=== PATIENT | male | born 1950 | race Caucasian/White ===

== ENCOUNTER → 2017-10-13 08:05 | Outpatient (CLI) | payer MEDICARE, OTHER, SELFPAY ==
[2017-10-13 10:02] LABS: Hemoglobin A1c 6.2 % (4.2-6.3)
[2017-10-13 10:14] LABS: Anion Gap 8 (5-15); BUN 17 mg/dL (7-18); BUN/Creat Ratio 15.9 RATIO (10-20); Calcium,Total 8.8 mg/dL (8.5-10.1); Chloride 108 mmol/L (98-107); Cholesterol 69 mg/dL (200); Creatinine, Serum 1.07 mg/dL (0.70-1.30); EST Glomerular Filtration Rate 74 mL/min (>60); Est Glom Filt Rate - Afr Amer 89 mL/min (>60); Glucose 128 mg/dL (74-106); High Density Lipoprotein 39 mg/dL; Sodium Level 143 mmol/L (136-145); Triglycerides 74 mg/dL; Very Low Density Lipoprotein 15 mg/dL (5-40)
== END ==
PROVIDERS: Family Provider Family Medicine; PCP Family Medicine; Visit Provider Family Medicine
DX: E11.9 Type 2 diabetes mellitus without complications (principal); E78.5 Hyperlipidemia, unspecified
CPT/HCPCS: 36415; 80048; 80061; 83036

== ENCOUNTER 2017-11-16 07:01 | Day surgery (SDC) | payer MEDICARE, OTHER, SELFPAY ==
[2017-11-16] VITALS (7 sets, daily range): BP systolic 75–134; BP diastolic 57–81; PULSE 68–86; RESP 16–19; TEMP 36.3–36.5; O2SAT 93–96; BMI 27.8
[2017-11-16 08:21] LABS: Bedside Glucose 148 mg/dL (70-110)
--- NOTE | 2017-11-16 08:53 | COLBX_PTH ---
PATIENT: KELLE GARCIA LOC: EN U#:[id number] AGE/SX: 67/M ROOM: RE11/16/[address]: Dr. Alfonzo Chau MD : 1950 BED: DIS: 11/16/2017 SPEC #: [id number] RECD: 11/16/17 11:55 STATUS: LALIT KATHY #: [id number] ESTRELLITA: 11/16/17 08:[address]: Alfonzo Chau DEPT: SURGICAL PATHOLOGY RECD BY: Jayson Cardoso ENTERED: 11/16/17 12:53 SP TYPE: COLON BX OTHR DR: Dr. Gilberto Keyes MD Tissues: Descending colon Procedures: Surgery Specimen Level IV HEADER OPERATION: Colonoscopy PRE-OP DIAGNOSIS: Screening TISSUE SUBMITTED: Descending colon polyps (2) MICROSCOPIC DIAGNOSIS Descending colon polyps, biopsy: Fragments of tubular adenoma. AM:tera 11/17/17 COMMENT Case has been reviewed in consultation with Dr. Obregon who concurs with the above diagnosis. IDC:SJ MICROSCOPIC DESCRIPTION Slides are reviewed. GROSS DESCRIPTION Received in fixative is one container labeled with the patient's name and designated descending colon polyps. The specimen consists of two romero-pink polyps measuring 1 x 0.7 x 0.5 cm and 1.5 x 0.7 x 0.5 cm. The base of one polyp is inked black and other polyp is inked blue. Both polyps are bisected and submitted entirely in one cassette. / CEDRIC:tera 11/16/17 TC:5 CPT: 17285
--- NOTE | 2017-11-16 09:00 | PCM.OPRPT ---
Problem List (1) Encounter for screening for malignant neoplasm of colon Status: Acute Report of Operation Date of Procedure: 11/16/17 Pre-Operative Diagnosis: z12.11 screening colonoscopy Post-Operative Diagnosis: Same with polyps of the descending colon Surgery/Procedure Performed:: 60883 colonoscopy with snare polypectomy ?2 Description of Surgical Findings:: 2 polyps within the descending colon removed with snare cautery technique Type of Anesthesia:: MAC Anesthesiologist: Tavares Wells Specimen's removed: 2 polyps in the descending colon Description of Procedure: Patient was brought into the operating room. Placed in the supine position. Under excellent MAC anesthetic colonoscope was inserted into the rectum and directed through the sigmoid colon, descending colon, transverse colon, ascending colon, to the cecum. Operative findings: 1. Cecum: Normal appearance no mass lesions normal ileocecal valve. 2. Ascending colon: Normal appearance no mass lesions. 3. Transverse colon: Normal appearance no mass lesions. 4. Descending colon: Normal appearance no mass lesions. There were 2 polyps of the descending colon both with long stalks in the distal aspect of the sigmoid colon. These were removed with snare cautery technique and brought back through the anus with a snare polyp bag. I went back up and inspected the bases the distal polypectomy was bleeding and a resolution 360 clip was placed. Good hemostasis was achieved with this. The proximal polypectomy site looked good and was not bleeding. 5. Sigmoid colon normal appearance no mass lesions scattered diverticuli identified. 6. Rectum: Normal appearance no mass lesions few internal hemorrhoids were noted on retroflexion. Scope was withdrawn digital rectal exam was performed showing a small prostate and a few external hemorrhoids as well. Patient will need another colonoscopy in 3 years. I am going to obtain an abdominal x-ray to check on the location of the clip. - Admit VTE Documentation VTE Present on Admission: No VTE Mechan Device Prophylaxis: None VTE Pharm Prophylaxis ordered?: No Reason prophylaxis not ordered:: Treatment Not Indicated
--- NOTE | 2017-11-16 09:08 | RAD_ITS ---
STUDY: X-RAY - ABDOMEN/PELVIS REASON FOR EXAM: Male, 67 years old. Post colonoscopy. Clip placement for polyp marker. TECHNIQUE: Two AP supine views of the abdomen and pelvis. COMPARISON: None. FINDINGS: Normal visualized lung bases. There is an unremarkable bowel gas pattern. A metallic clip marker is seen overlying the pedicle of the L5 vertebrae on the left side most likely within the sigmoid colon. Normal soft tissue structures. Normal visualized osseous structures. RAD/Abdomen Single View (Portable) IMPRESSION: Metallic clip seen as described. Electronically Signed: Terry Gonzalez MD at 9:34 EDT Tel [phone], Service support ,
--- NOTE | 2017-11-25 07:56 | PCM.HP.STD ---
Problem List (1) Encounter for screening for malignant neoplasm of colon Status: Acute History of Present Illness Date of Admission: 11/16/17 The patient is a 67 year old M who presents for screening colonoscopy. Past Medical History Past Medical History (Chronic Problems): Chronic Problems (Last Updated 11/23/17 @ 13:01 by Dali Zamora) History of tobacco use (Chronic) Anxiety and depression (Chronic) Allergies No Known Allergies Allergy (Verified 11/23/17 12:55) Home Medications: Ambulatory Orders Medication Instructions Recorded Citalopram [Celexa] 40 mg PO DAILY 03/28/15 Aspirin 325 mg PO DAILY@0800 11/10/17 Atorvastatin Calcium [Lipitor] 80 mg PO QHS 11/10/17 Metformin HCl [Glucophage] 1,000 mg PO BID 11/10/17 Surgical History: - - R hand carpal tunnel surgery. Psychiatric History: Anxiety, Depression Smoking Status: Former smoker - *Family History Maternal History Items: Diabetes Paternal History Items: Stroke VTE Information - Inpt Only VTE Present on Admission: No VTE Mechan Device Prophylaxis: None VTE Pharm Prophylaxis ordered?: No Reason prophylaxis not ordered:: Treatment Not Indicated - Physical Exam Lungs: Clear to auscultation Cardiovascular: Regular rate, Regular Rhythm, No murmurs Abdomen: Bowel Sounds Present, Soft, Non Tender, Non-Distended Vital Signs Temp Pulse Resp BP Pulse Ox 97.4 F L 68 18 118/73 96 11/16/17 09:25 11/16/17 09:25 11/16/17 09:25 11/16/17 09:25 11/16/17 09:25 Oxygen Delivery Method Room Air Weight: 199 lb 4.766 oz Body Mass Index (BMI) 27.8 Finger Stick Blood Glucose 444 Assessment/Plan I plan is to perform a screening colonoscopy on the patient.
== END 2017-11-16 09:51 | disposition home or self-care (01) ==
LOC: EN 07:03 → AC 07:04
PROVIDERS: Family Provider Family Medicine; PCP Family Medicine; Visit Provider Surgery
PROC: 0DJD8ZZ Inspection of Lower Intestinal Tract, Via Natural or Artificial Opening Endoscopic (ICD-10-PCS; CPT 45378; principal; 2017-11-16 08:25)
DX: Z12.11 Encounter for screening for malignant neoplasm of colon (principal); D12.4 Benign neoplasm of descending colon; K64.4 Residual hemorrhoidal skin tags; K64.8 Other hemorrhoids; E11.9 Type 2 diabetes mellitus without complications; F32.9 Major depressive disorder, single episode, unspecified; F41.9 Anxiety disorder, unspecified; Z79.84 Long term (current) use of oral hypoglycemic drugs; Z79.82 Long term (current) use of aspirin; Z79.899 Other long term (current) drug therapy; Z86.73 Personal history of transient ischemic attack (TIA), and cerebral infarction without residual deficits; Z87.891 Personal history of nicotine dependence
CPT/HCPCS: 45385; 74018; 82962; 88305; J7120; J1610

== ENCOUNTER → 2018-04-13 09:21 | Outpatient (CLI) | payer MEDICARE, OTHER, SELFPAY ==
[2018-04-13 09:56] LABS: Glucose 131 mg/dL (74-106)
[2018-04-13 10:06] LABS: Hemoglobin A1c 6.6 % (4.2-6.3)
== END ==
PROVIDERS: Family Provider Family Medicine; PCP Family Medicine; Visit Provider Family Medicine
DX: E11.9 Type 2 diabetes mellitus without complications (principal); Z12.5 Encounter for screening for malignant neoplasm of prostate
CPT/HCPCS: 36415; 82947; 83036

== ENCOUNTER → 2018-10-11 09:15 | Outpatient (CLI) | payer MEDICARE, OTHER, SELFPAY ==
[2017-11-23 12:55] VITALS: BMI 27.7
[2018-10-11 10:13] LABS: Hemoglobin A1c 7.1 % (4.2-6.3)
[2018-10-11 10:22] LABS: Anion Gap 12 (5-15); BUN 21 mg/dL (7-18); BUN/Creat Ratio 19.1 RATIO (10-20); Chloride 107 mmol/L (98-107); Cholesterol 70 mg/dL (200); EST Glomerular Filtration Rate 71 mL/min (>60); Est Glom Filt Rate - Afr Amer 86 mL/min (>60); Glucose 153 mg/dL (74-106); High Density Lipoprotein 33 mg/dL; PSA,Total - Annual Screen 0.22 ng/mL (0.00-4.00); Potassium 4.3 mmol/L (3.5-5.1); Sodium Level 143 mmol/L (136-145); Triglycerides 117 mg/dL; Very Low Density Lipoprotein 23 mg/dL (5-40)
== END ==
PROVIDERS: Family Provider Family Medicine; PCP Family Medicine; Referring Provider Family Medicine; Visit Provider Family Medicine
DX: E11.9 Type 2 diabetes mellitus without complications (principal); E78.5 Hyperlipidemia, unspecified; Z12.5 Encounter for screening for malignant neoplasm of prostate
CPT/HCPCS: 36415; 80048; 80061; 83036; 84153; G0103

== ENCOUNTER → 2019-07-11 09:42 | Outpatient (CLI) | payer MEDICARE, OTHER, SELFPAY ==
[2017-11-23 12:55] VITALS: BMI 27.7
[2019-07-11 12:33] LABS: Hemoglobin A1c 7.5 % (4.2-6.3)
[2019-07-11 12:37] LABS: Anion Gap 11 (5-15); BUN 20 mg/dL (7-18); BUN/Creat Ratio 17.1 RATIO (10-20); Chloride 108 mmol/L (98-107); Cholesterol 69 mg/dL (200); Creatinine, Serum 1.17 mg/dL (0.70-1.30); EST Glomerular Filtration Rate 66 mL/min (>60); Est Glom Filt Rate - Afr Amer 80 mL/min (>60); Glucose 174 mg/dL (74-106); High Density Lipoprotein 32 mg/dL; Sodium Level 141 mmol/L (136-145); Triglycerides 121 mg/dL; Very Low Density Lipoprotein 24 mg/dL (5-40)
== END ==
PROVIDERS: Family Provider Family Medicine; PCP Family Medicine; Referring Provider Family Medicine; Visit Provider Family Medicine
DX: E11.9 Type 2 diabetes mellitus without complications (principal); E78.5 Hyperlipidemia, unspecified
CPT/HCPCS: 36415; 80048; 80061; 83036

== ENCOUNTER → 2019-10-10 08:59 | Outpatient (CLI) | payer MEDICARE, OTHER, SELFPAY ==
[2019-10-10 10:57] LABS: Cholesterol 85 mg/dL (200); High Density Lipoprotein 28 mg/dL; Triglycerides 219 mg/dL; Very Low Density Lipoprotein 44 mg/dL (5-40)
[2019-10-10 11:05] LABS: Hemoglobin A1c 7.4 % (4.2-6.3)
== END ==
PROVIDERS: PCP Family Medicine; Referring Provider Family Medicine; Visit Provider Family Medicine
DX: E11.9 Type 2 diabetes mellitus without complications (principal)
CPT/HCPCS: 36415; 80061; 83036

== ENCOUNTER → 2019-10-17 10:03 | Outpatient (CLI) | payer MEDICARE, OTHER, SELFPAY ==
[2017-11-23 12:55] VITALS: BMI 27.7
[2019-10-17 12:37] LABS: PSA,Total - Annual Screen 0.19 ng/mL (0.00-4.00)
== END ==
PROVIDERS: PCP Family Medicine; Referring Provider Family Medicine; Visit Provider Family Medicine
DX: Z12.5 Encounter for screening for malignant neoplasm of prostate (principal)
CPT/HCPCS: 36415; 84153; G0103

== ENCOUNTER → 2020-04-09 10:21 | Outpatient (CLI) | payer MEDICARE, OTHER, SELFPAY ==
[2017-11-23 12:55] VITALS: BMI 27.7
[2020-04-09 12:38] LABS: ALB/GLOB Ratio 0.9 RATIO (0.9-2.4); AST(SGOT) 25 U/L (15-37); Alanine Aminotransfer ALT/SGPT 42 U/L (16-61); Albumin, Serum 3.5 g/dL (3.2-5.0); Alkaline Phosphatase 70 U/L (45-117); Anion Gap 4 (5-15); BUN 17 mg/dL (7-18); BUN/Creat Ratio 14.3 RATIO (10-20); Calcium,Total 8.9 mg/dL (8.5-10.1); Chloride 110 mmol/L (98-107); Cholesterol 104 mg/dL (200); Creatinine, Serum 1.19 mg/dL (0.70-1.30); EST Glomerular Filtration Rate 65 mL/min (>60); Est Glom Filt Rate - Afr Amer 78 mL/min (>60); Globulin 3.9 g/dL (2.2-4.2); Glucose 160 mg/dL (74-106); High Density Lipoprotein 30 mg/dL; Potassium 4.6 mmol/L (3.5-5.1); Protein, Total 7.4 g/dL (6.4-8.2); Sodium Level 140 mmol/L (136-145); Triglycerides 231 mg/dL; Very Low Density Lipoprotein 46 mg/dL (5-40)
[2020-04-09 13:28] LABS: Hemoglobin A1c 7.4 % (3.8-5.6)
== END ==
PROVIDERS: PCP Family Medicine; Referring Provider Family Medicine; Visit Provider Family Medicine
DX: E11.9 Type 2 diabetes mellitus without complications (principal); E78.5 Hyperlipidemia, unspecified; R03.0 Elevated blood-pressure reading, without diagnosis of hypertension
CPT/HCPCS: 36415; 80053; 80061; 83036

== ENCOUNTER → 2020-10-11 10:14 | Outpatient (CLI) | payer MEDICARE, OTHER, SELFPAY ==
[2017-11-23 12:55] VITALS: BMI 27.7
[2020-10-11 12:06] LABS: Hemoglobin A1c 6.7 % (3.8-5.6)
[2020-10-11 12:13] LABS: AST(SGOT) 37 U/L (15-37); Alanine Aminotransfer ALT/SGPT 64 U/L (16-61); Albumin, Serum 3.8 g/dL (3.2-5.0); Alkaline Phosphatase 65 U/L (45-117); Anion Gap 5 (5-15); BUN 21 mg/dL (7-18); BUN/Creat Ratio 14.4 RATIO (10-20); Calcium,Total 9.1 mg/dL (8.5-10.1); Chloride 107 mmol/L (98-107); Cholesterol 99 mg/dL (200); Creatinine, Serum 1.46 mg/dL (0.70-1.30); EST Glomerular Filtration Rate 51 mL/min (>60); Est Glom Filt Rate - Afr Amer 62 mL/min (>60); Globulin 3.9 g/dL (2.2-4.2); Glucose 154 mg/dL (74-106); High Density Lipoprotein 32 mg/dL; Potassium 4.4 mmol/L (3.5-5.1); Protein, Total 7.7 g/dL (6.4-8.2); Sodium Level 139 mmol/L (136-145); Triglycerides 241 mg/dL; Very Low Density Lipoprotein 48 mg/dL (5-40)
[2020-10-11 12:16] LABS: Microalbumin:Creatinine Ratio 29.7 mg/g CRE (<30 mg/g CRE)
== END ==
PROVIDERS: PCP Family Medicine; Referring Provider Family Medicine; Visit Provider Family Medicine
DX: E11.9 Type 2 diabetes mellitus without complications (principal)
CPT/HCPCS: 80053; 80061; 82043; 82570; 83036

== ENCOUNTER → 2020-10-19 08:58 | Outpatient (CLI) | payer MEDICARE, OTHER, SELFPAY ==
[2017-11-23 12:55] VITALS: BMI 27.7
[2020-10-19 10:53] LABS: Anion Gap 6 (5-15); BUN 16 mg/dL (7-18); BUN/Creat Ratio 12.3 RATIO (10-20); Calcium,Total 9.3 mg/dL (8.5-10.1); Chloride 106 mmol/L (98-107); EST Glomerular Filtration Rate 58 mL/min (>60); Est Glom Filt Rate - Afr Amer 70 mL/min (>60); Glucose 154 mg/dL (74-106); PSA,Total - Annual Screen 0.23 ng/mL (0.00-4.00); Potassium 4.5 mmol/L (3.5-5.1); Sodium Level 141 mmol/L (136-145)
== END ==
PROVIDERS: PCP Family Medicine; Referring Provider Family Medicine; Visit Provider Family Medicine
DX: Z12.5 Encounter for screening for malignant neoplasm of prostate (principal); R79.89 Other specified abnormal findings of blood chemistry
CPT/HCPCS: 36415; 80048; 84153; G0103

== ENCOUNTER → 2020-10-26 12:12 | Outpatient (CLI) | payer MEDICARE, OTHER, SELFPAY ==
--- NOTE | 2020-10-26 12:13 | US_ITS ---
STUDY: RENAL ULTRASOUND - COMPLETE REASON FOR EXAM: Male, 70 years old. DECREASED RENAL FUNCTION TECHNIQUE: Ultrasound evaluation of the kidneys was performed with real-time and static wiley-scale imaging. COMPARISON: None. FINDINGS: RIGHT KIDNEY: Normal location of the right kidney, which is normal in size. The right kidney measures 10.7 cm x 5 cm x 5.8 cm. There is a normal cortex of the right kidney. The renal cortex measures 1.7 cm. 51.1 cm x 0.6 cm x 0.8 cm cyst in the lower pole of the right kidney. There are no right renal calculi. There is no right hydronephrosis. DISTAL RIGHT URETER: There is non-visualization of the distal right ureter. There is no demonstrated right ureterovesical junction calculus. There is a visualized right ureteral jet. LEFT KIDNEY: Normal location of the left kidney, which is normal in size. The left kidney measures 10.6 cm x 4.3 cm x 5.9 cm. There is a normal cortex of the left kidney. The renal cortex measures 1.7 cm. There is no left renal mass or cyst. There are no left renal calculi. There is no left hydronephrosis. DISTAL LEFT URETER: There is non-visualization of the distal left ureter. There is no demonstrated left ureterovesical junction calculus. There is a visualized left ureteral jet. BLADDER: The distended urinary bladder has a volume of 21.6 ml. There is a 1.9 cm x 1.8 cm x 1.3 cm echogenic density within the right base of the bladder. A polypoid lesion should be ruled out. US/Kidney and Bladder IMPRESSION: 1.9 cm x 1.8 cm x 1.3 cm polypoid soft tissue density seen at the base of the bladder on the right side. Electronically Signed: Terry Gonzalez MD at 14:45 EST , Service support ,
== END ==
PROVIDERS: PCP Family Medicine; Referring Provider Family Medicine; Visit Provider Family Medicine
DX: N28.9 Disorder of kidney and ureter, unspecified (principal)
CPT/HCPCS: 76770

== ENCOUNTER → 2020-11-07 14:44 | Outpatient (CLI) | payer MEDICARE, OTHER, SELFPAY ==
--- NOTE | 2020-11-07 14:46 | CT_ITS ---
STUDY: CT ABDOMEN AND PELVIS WITH CONTRAST REASON FOR EXAM: Male, 70 years old. Mass in bladder RADIATION DOSAGE (If Supplied By Facility): CTDIvol = ( 17.41 ) mGy, DLP = ( 2208.47 ) mGycm TECHNIQUE: Transaxial images were obtained from the dome of the diaphragm to the symphysis pubis without oral contrast. IV 100mL Isovue-300 was administered. Sagittal and coronal images were reconstructed. Individualized dose optimization techniques were used for this CT. COMPARISON: None. FINDINGS: The visualized lung bases are unremarkable. Coronary artery calcification. There is decreased attenuation of the liver consistent with steatosis. Normal gallbladder and extrahepatic biliary system. Normal spleen. Normal pancreas. Normal bilateral adrenal glands. Normal right kidney. Punctate calculus in the anterior mid pole calyx of the left kidney. Normal visualized stomach. Normal small intestine. Normal colon. The appendix is visualized and appears normal. There is scattered atherosclerotic calcification of the abdominal aorta, without a demonstrated aneurysm. Normal inferior vena cava. Normal retroperitoneum. Irregular bladder wall thickening at the base of the bladder more prominent on the right side. Punctate calcifications are seen within the polypoid lesion. The polypoid lesion measures 1.5 cm x 1 cm in greatest dimension. There are prostatic calcifications. Small bilateral inguinal hernias containing fat. Spondylosis and disc space narrowing at the L4-L5 and L5-S1 levels. CT/Abdomen/Pelvis WITH Contrast IMPRESSION: Irregular bladder wall thickening at the base the bladder worse on the right side where there is evidence of a 1.5 cm x 1 cm polypoid lesion with a punctate calcifications within. A neoplastic process should be ruled out. Diffuse fatty infiltration of the liver. Electronically Signed: Terry Gonzalez MD at 8:46 EST , Service support ,
== END ==
PROVIDERS: PCP Family Medicine; Referring Provider Family Medicine; Visit Provider Family Medicine
DX: N32.89 Other specified disorders of bladder (principal)
CPT/HCPCS: 74177; Q9967

== ENCOUNTER 2020-11-23 06:22 | Day surgery (SDC) | payer MEDICARE, OTHER, SELFPAY ==
[2017-11-23 12:55] VITALS: BMI 27.7
[2020-11-23] VITALS (11 sets, daily range): BP systolic 70–144; BP diastolic 54–82; PULSE 57–87; RESP 14–16; TEMP 36.4–37.2; O2SAT 93–98; BMI 29.9
[2020-11-23] MEDS: Lactated Ringers 1,000 ML 100 ML IV ×2 (06:58→08:01)
--- NOTE | 2020-11-23 07:15 | HP.PCM_ITS ---
History of Present Illness Date of Admission: 11/23/20 The patient is a 70 year old M here for surveillance colonoscopy. The patient had 2 large polyps found 3 years ago and was recommended to have a repeat colonoscopy in 3 years. Patient has not experienced any abdominal pain or blood in the stool currently. Past Medical/Surgical History - Planned Operation Planned Operative Procedure/s: cscope open access Date of Operative Procedure: 11/23/20 Permit Signed: No S.O.S: No Is This Patient Having a Total Joint: No - Previous Hospitalizations/Surgeries HX Hospitalizations: No HX of Surgeries: CARPAL TUNNEL. STENTS PLACED IN CAROTID ARTERY -2014. cscope 2018 Any Problems With Anesthesia: No You/Your Family Experience Fever (Hyperthermia) With Anes: No Cholinesterase deficiency: No - Cardiovascular Hx Chest Pain within Last 2 months: No Hx of Irregular Heartbeat and/or Afib: No Hx Heart Attack: No Hx Congestive Heart Failure: No Hx Rheumatic Fever: No Hx Hypertension: No Hx Internal Defibrillator: No Hx Pacemaker: No Hx Cardiac Catheterization: No Hx Cardiac Surgery/Stents/Etc.: No Hx Stress Test: No HX Edema: No Hx Pain in Legs when Walking/Leg Cramps: No - Respiratory Chronic Cough: No HX of Shortness of Breath: Yes - slightly sob with 2 flights of stairs Hoarseness: No Hx Chronic Obstructive Pulmonary Disease (COPD): No Hx Asthma: No Hx Emphysema: No Hx Sleep Apnea: No CPAP: No BIPAP: No Hx Oxygen Use at Home: No Hx Respiratory Tract Infection/Cold (presently): No Do You Snore Loudly (louder than talking or can be heard): Yes Do You Often Feel Tired/ Fatigued/ Sleepy Dring Daytime?: Yes Has Anyone Observed You Stop Breathing During Sleep?: No Result (for STOP score): Positive Hx Smoking: Yes - quit 15 yrs ago Smoking Status: Former smoker - Gastrointestinal Hx Gastroesophageal Reflux: Yes Controlled With Meds: Yes Hx Gastrointestinal Disorders: No Hx Gastrointestinal Bleed: No Hx Ulcer: No Hx Hiatal Hernia: No Difficulty Chewing/Swallowing: No Recent Onset of Swallowing Problems: No Special diet followed at home: Yes - ada Hx Unplanned Weight Loss of 20#: No HX Unplanned Weight Gain of 20#: No - Neurological Hx Seizures: No HX Syncope/Blackout Spells/Unconsciousness: No Hx CVA/Stroke: Yes - 2014 facial numbness/left side Hx Transient Ischemic Attacks (TIA): No Hx Multiple Sclerosis: No Hx Parkinson's Disease: No Hx Head/Neck Injury: No Hx Headaches: No Hx Back Injury/Pain: No Recent Onset of Speech Difficulty: No Restless Legs: No Does patient have nerve stimulator: No Patient instructed to have device shut off: No Rep notified?: No - Blood Disorder Hx Leukemia: No Bleeding Tendencies: No Hx Deep Vein Thrombosis: No Hx High Cholesterol: Yes - on med Blood Transmitted Disease: No Hx Hepatitis: No Hx Cirrhosis: No Hx Anemia: No Hx Blood Disorders: No - Genitourinary Hx Renal Disease: Yes - bladder tumor Hx Dialysis: No - Musculoskeletal Hx Arthritis: Yes - HANDS Hx Rheumatoid Arthritis: No Hx Gout: No Recent Onset of an Orthopedic Problem: No - Endocrine Hx Diabetes: Yes - oral meds Insulin: No Thyroid Disease: No Hx Steroid Therapy: No - Psycho/Social Hx Substance Use: No Hx Alcohol Use: Yes - occ Hx Anxiety: Yes - CELEXA Hx Depression: No Mental Illness: No Hx Dementia: No - Miscellaneous Hx Cancer: No Recent Exposure to Contagious Disease: No Active MRSA: No Hx of C-Diff: No Any Loose Teeth: No Allergies No Known Allergies Allergy (Verified 11/20/20 11:17) Maternal Family History: Family History (Last Updated 11/23/17 @ 13:00 by Dali Zamora) Mother Diabetes Sister Seizures Father CVA (cerebral vascular accident) Diabetes Paternal Family History: Family History (Last Updated 11/23/17 @ 13:00 by Dali Zamora) Mother Diabetes Sister Seizures Father CVA (cerebral vascular accident) Stroke - Discharge Is Pt Admitted From a Penitentiary, or a Half-Way: No After D/C, Where Do you Plan to Go: Return Home - From the PAT History Number of Risk Factors: 5 - Physical Exam Vitals/I&O's: Vital Signs Temp Pulse Resp BP Pulse Ox 97.7 F L 87 16 113/75 94 11/23/20 06:50 11/23/20 06:50 11/23/20 06:50 11/23/20 06:50 11/23/20 06:50 Oxygen Delivery Method Room Air Weight: 208 lb 15.971 oz Body Mass Index (BMI) 29.9 Finger Stick Blood Glucose 444 General: Alert, Oriented x3 Neck: No JVD Lungs: Normal air movement Cardiovascular: Regular rate, Regular Rhythm Abdomen: Soft, Non Tender, Non-Distended Microbiology Past 72 Hours 11/22/20 09:25 Interface Orders SARS-CoV-2 Antigen (Rapid) - Final Current Medications Lactated Ringer's () 1,000 mls @ 100 mls/hr IV .Q10H BALTA Last Admin: 11/23/20 06:58 Dose: 100 mls/hr Documented by: Assessment/Plan All Active Problems (Last Updated 11/23/17 @ 13:01 by Dali Zamora) Encounter for screening for malignant neoplasm of colon (Acute) 70-year-old male here for screening colonoscopy for history of polyps I explained endoscopy in detail to the patient. I explained the risks including but not limited to stroke or heart attack with anesthesia, perforation of the GI tract, bleeding, infection. I explained that any of these could necessitate further emergency surgery. The patient understands and all questions were answered sufficiently. The patient wishes to proceed with procedure. Juwan Clements MD Pager: [facility] [address] [place] [address], [address] [place] [address] Office: Surgery Risks - Colonoscopy Risks Include but are not Limited To: Risks include but are not limited to: Bleeding, perforation requiring further surgery, inability to complete colonoscopy requiring barium enema.
--- NOTE | 2020-11-23 07:30 | COLBX_PTH ---
PATIENT: KELLE GARCIA LOC: EN U#:[id number] AGE/SX: 70/M ROOM: RE11/23/[address]: Dr. Juwan Clements MD : 1950 BED: DIS: 11/23/2020 SPEC #: [id number] RECD: 11/23/20 10:21 STATUS: LALIT KATHY #: [id number] ESTRELLITA: 11/23/20 07:[address]: Juwan Clements DEPT: SURGICAL PATHOLOGY RECD BY: Yareli Bassett ENTERED: 11/23/20 11:02 SP TYPE: COLON BX OTHR DR: Dr. Gilberto Rosario MD Tissues: Sigmoid colon biopsy Procedures: Surgery Specimen Level IV HEADER OPERATION: Colonoscopy - open access (MAC) PRE-OP DIAGNOSIS: Screening for malignant neoplasm of colon TISSUE SUBMITTED: Sigmoid colon polyp MICROSCOPIC DIAGNOSIS Sigmoid colon polyp, biopsy: Hyperplastic polyp. SJ:tera 11/26/2020 MICROSCOPIC DESCRIPTION Slides are reviewed. GROSS DESCRIPTION Received in fixative is one container labeled with the patient's name and designated sigmoid colon polyp. The specimen consists of one irregular fragment of light romero soft tissue that measures 0.7 x 0.3 x 0.1 cm. The specimen is totally submitted in one cassette. / AM:tera 11/23/20 TC:1 CPT: 15253
--- NOTE | 2020-11-23 07:46 | OP.COLON_ITS ---
Patient Name: Terell Marrero Procedure Date: 11/23/2020 7:10 AM Date of : 1950 Age: 70 Procedure: Colonoscopy Indications: High risk colon cancer surveillance: Personal history of colonic polyps Providers: Juwan Clements MD Referring MD: Gilberto Rosario Md Medicines: Monitored Anesthesia Care Patient Profile: This is a 70 year old male. Refer to note in patient chart for documentation of history and physical. Last Colonoscopy: 3 years ago. Complications: No immediate complications. Estimated blood loss: Minimal. Procedure: Pre-Anesthesia Assessment: - Prior to the procedure, a History and Physical was performed, and patient medications and allergies were reviewed. The patient's tolerance of previous anesthesia was also reviewed. The risks and benefits of the procedure and the sedation options and risks were discussed with the patient. All questions were answered, and informed consent was obtained. Prior Anticoagulants: The patient has taken no previous anticoagulant or antiplatelet agents. After reviewing the risks and benefits, the patient was deemed in satisfactory condition to undergo the procedure. After I obtained informed consent, the scope was passed under direct vision. Throughout the procedure, the patient's blood pressure, pulse, and oxygen saturations were monitored continuously. The colonoscope was introduced through the anus and advanced to the cecum, identified by appendiceal orifice and ileocecal valve. The colonoscopy was performed without difficulty. The patient tolerated the procedure well. The quality of the bowel preparation was good. Scope In: 7:27:55 AM Scope Withdrawal Time 0 hours 8 minutes 55 seconds Scope Out: 7:40:46 AM Total Procedure Duration Time 0 hours 12 minutes 51 seconds Findings: A small polyp was found in the sigmoid colon. The polyp was sessile. The polyp was removed with a hot snare. Resection and retrieval were complete. The exam was otherwise without abnormality on direct and retroflexion views. Impression: - One small polyp in the sigmoid colon, removed with a hot snare. Resected and retrieved. - The examination was otherwise normal on direct and retroflexion views. Recommendation: - Discharge patient to home. - Resume previous diet. - Continue present medications. - Await pathology results. - Repeat colonoscopy in 5 years for surveillance. Procedure Code(s): --- Professional --- 81562, Colonoscopy, flexible; with removal of tumor(s), polyp(s), or other lesion(s) by snare technique Diagnosis Code(s): --- Professional --- Z86.010, Personal history of colonic polyps D12.5, Benign neoplasm of sigmoid colon CPT copyright 2017 [employer]. All rights reserved. The codes documented in this report are preliminary and upon remote coders review may be revised to meet current compliance requirements. Juwan Clements MD 11/23/2020 7:45:59 AM This report has been signed electronically. Number of Addenda: 0 Note Initiated On: 11/23/2020 7:10 AM
--- NOTE | 2020-11-23 07:46 | OP.CCLET_ITS ---
11/23/2020 Gilberto Rosario Md Re : Colonoscopy procedure for Terell Marrero Dear Abraham This procedure was performed on Monday, November 23, 2020. My impressions and recommendations are as follows: Impressions : - One small polyp in the sigmoid colon, removed with a hot snare. Resected and retrieved. - The examination was otherwise normal on direct and retroflexion views. Recommendations : - Discharge patient to home. - Resume previous diet. - Continue present medications. - Await pathology results. - Repeat colonoscopy in 5 years for surveillance. My findings are described in the full procedure note, which is enclosed. If I can be of further assistance, please feel free to contact me at Doctor phone number(s): , Work: . Sincerely, Juwan Clements MD 11/23/2020 7:45:59 AM This report has been signed electronically.
[2020-11-23 08:55] LABS: Bedside Glucose 189 mg/dL (70-110)
== END 2020-11-23 09:12 | disposition home or self-care (01) ==
LOC: EN 06:22 → AC 06:23
PROVIDERS: PCP Family Medicine; Referring Provider Family Medicine; Visit Provider Surgery
PROC: 0DJD8ZZ Inspection of Lower Intestinal Tract, Via Natural or Artificial Opening Endoscopic (ICD-10-PCS; CPT 45378; principal; 2020-11-23 07:25)
DX: Z12.11 Encounter for screening for malignant neoplasm of colon (principal); D12.5 Benign neoplasm of sigmoid colon; E11.9 Type 2 diabetes mellitus without complications; F41.9 Anxiety disorder, unspecified; M13.842 Other specified arthritis, left hand; M13.841 Other specified arthritis, right hand; Z86.010 Personal history of colon polyps; Z79.899 Other long term (current) drug therapy; Z79.84 Long term (current) use of oral hypoglycemic drugs; Z20.828 Contact with and (suspected) exposure to other viral communicable diseases
CPT/HCPCS: 45385; 82962; 87426; 88305; C9803; J7120; J2405

== ENCOUNTER 2020-12-14 10:33 | Day surgery (SDC) | payer MEDICARE, OTHER, SELFPAY ==
[2020-11-23 06:50] VITALS: BMI 29.9
--- NOTE | 2020-12-13 08:57 | EKG12_ITS ---
Test Reason : PRE OP Blood Pressure : / mmHG Vent. Rate : 080 BPM Atrial Rate : 080 BPM P-R Int : 132 ms QRS Dur : 090 ms QT Int : 374 ms P-R-T Axes : 038 019 069 degrees QTc Int : 431 ms Normal sinus rhythm Normal ECG Confirmed by OKSANA DEY, EUGENE ([id number]), newspaper or periodical editor ROBERT CASTAÑEDA ([id number]) on 12/14/2020 2:44:27 PM Referred By: Randolph Knowles Confirmed By:DELISA GANDHI MD
[2020-12-13 10:09] LABS: Absolute Lymphocyte Count 1.62 X10^3/uL (0.83-4.51); Absolute Neutrophil Count 4.4 X10^3/uL (2.0-7.7); Basophil# 0.07 X10^3/uL; Eosinophil# 0.45 X10^3/uL; Eosinophils% 6.4 % (0-5); Hematocrit 42.8 % (40-54); Hemoglobin 14.5 g/dL (13.0-16.5); Lymphocyte # 1.62 X10^3/ul (4.0); Lymphocyte % 23.2 % (19-41); Mean Corp Hgb Conc 33.9 g/dL (32-36); Mean Corpuscular Hgb 32.8 pg (27.0-32.0); Mean Corpuscular Volume 96.8 fL (80-94); Monocyte# 0.44 X10^3/uL; Monocyte% 6.3 % (0-10); NRBC Flagged by Analyzer 0 % (0-5); Neutrophil # 4.39 X10^3/uL (2.7-7.7); Platelet Count 230 K/mm3 (150-450); RBC Distribution Width CV 12.4 % (11.6-14.6); RBC Distribution Width SD 43.8 fl (35.1-43.9); Red Blood Count 4.42 M/mm3 (4.6-6.2)
--- NOTE | 2020-12-14 | BLA_PTH ---
PATIENT: KELLE GARCIA LOC: [facility] U#:[id number] AGE/SX: 70/M ROOM: RE12/14/[address]: Dr. Randolph Knowles MD : 1950 BED: DIS: 12/14/2020 SPEC #: [id number] RECD: 12/14/20 13:52 STATUS: LALIT REBrendon #: [id number] ESTRELLITA: 12/14/20 00:[address]: Randloph Knowles DEPT: SURGICAL PATHOLOGY RECD BY: Kerwin Rose ENTERED: 12/17/20 07:40 SP TYPE: BLADDER BX OTHR DR: Dr. Gilberto Rosario MD Tissues: Urinary bladder, NOS Procedures: Surgery Specimen Level V HEADER OPERATION: TURBT PRE-OP DIAGNOSIS: Large bladder tumor TISSUE SUBMITTED: Bladder tissue MICROSCOPIC DIAGNOSIS Urinary bladder, TURB: Papillary urothelial carcinoma. See cancer checklist below. AM:tera 12/18/2020 COMMENT BLADDER CANCER (TUR) SUMMARY Procedure: Transurethral resection of bladder (TURBT) Tumor site: Not specified Histologic type: Papillary urothelial carcinoma Histologic grade: 3/3 Tumor configuration: Papillary Muscularis propria presence: No muscularis propria present. Lymphvascular invasion: Not identified Tumor extension: Confined to urothelium. Additional pathologic findings: Chronic follicular cystitis. The above summary is in compliance with [employer] Pathology (CAP) Cancer Protocols Checklist and [place] Joint Committee on Cancer (AJCC), Staging Manual, 8th Ed. Case has been reviewed in consultation with Dr. Obregon who concurs with the above diagnosis. IDC:SJ MICROSCOPIC DESCRIPTION Slides are reviewed. GROSS DESCRIPTION Received in fixative is one container labeled with the patient's name and designated bladder tissue. The specimen consists of multiple irregular fragments of light romero soft tissue that in aggregate measure 2.5 x 1.5 x 0.2 cm. A few fragments of romero-brown stones are also noted. The entire soft tissue is submitted in one cassette. The stones are for gross identification only. / CEDRIC:tera 12/17/20 TC:0 CPT: 77533
[2020-12-14 10:57] VITALS: BP 152/89; PULSE 71; RESP 16; TEMP 36.8; O2SAT 97; BMI 30.4
[2020-12-14] MEDS: Lactated Ringers 1,000 ML 100 ML IV (11:19)
[2020-12-14 11:31] LABS: Bedside Glucose 140 mg/dL (70-110)
[2020-12-14] MEDS: Cefazolin 2 GM in 0.9% Normal Saline 100 ML IV (12:54)
--- NOTE | 2020-12-14 13:02 | HP.PCM_ITS ---
History of Present Illness Date of Admission: 12/14/20 Chief Complaint: Large bladder tumor The patient is a 70 year old male who presents to the hospital for transurethral resection of a very large bladder tumor seen on CAT scan Past Medical History Past Medical History (Chronic Problems): Chronic Problems (Last Updated 11/23/17 @ 13:01 by Dali Zamora) History of tobacco use (Chronic) Anxiety and depression (Chronic) Medical History: Medical History (Last Reviewed 12/14/20 @ 13:[address] Randolph Knowles MD) Diabetes E11.9 High cholesterol E78.00 History of stroke Z86.73 Allergies No Known Allergies Allergy (Verified 12/14/20 10:55) Home Medications: Ambulatory Orders Medication Instructions Recorded Citalopram [Celexa] 40 mg PO DAILY 03/28/15 Atorvastatin Calcium [Lipitor] 20 mg PO QHS 11/10/17 Metformin HCl [Glucophage] 1,000 mg PO BID 11/10/17 Glipizide [Glipizide ER] 5 mg PO DAILY 11/20/20 Omeprazole [Prilosec] 20 mg PO DAILY 11/20/20 Aspirin E.C. [Ecotrin] 81 mg PO DAILY@0800 12/07/20 Ciprofloxacin [Cipro] 500 mg PO BID #10 tab 12/14/20 Hydrocodone Bitart/Apap 5-325 1 tablet PO Q4H PRN PRN 7 Days #14 12/14/20 [[place] 5MG-325MG] tablet Surgical History: Surgical History (Last Reviewed 12/14/20 @ 13:[address] Randolph Knowles MD) History of carpal tunnel release Z98.890 S/P colonoscopy Onset Date: ~11/16/17 Z98.890 history carotid stents Surgical History: - - R hand carpal tunnel surgery. Psychiatric History: Anxiety, Depression Smoking Status: Former smoker Tobacco Use: Non-smoker - *Family History Maternal Family History: Family History (Last Updated 11/23/17 @ 13:00 by Dali Zamora) Mother Diabetes Sister Seizures Father CVA (cerebral vascular accident) History Items: Diabetes Paternal Family History: Family History (Last Updated 11/23/17 @ 13:00 by Dali Zamora) Mother Diabetes Sister Seizures Father CVA (cerebral vascular accident) History Items: Stroke Review of Systems Constitutional: Denies: Chills, Fever, Weight Change HEENT: Denies: Head Aches, Sinus Congestion, Sinus Drainage Cardiovascular: Denies: Chest Pain, Palpitations Respiratory: Denies: Cough, Shortness of breath at rest, Sputum production Gastrointestinal: Denies: Abdominal Pain, Nausea, Vomiting Genitourinary: Denies: Dysuria Musculoskeletal: Denies: Joint Pain, Joint Tenderness Skin: Denies: Rash, Wounds Neurological: Denies: Numbness, Tingling, Focal weakness Psychiatric: Denies: Anxiety, Depression, Homicidal Ideations, Suicidal Ideations Hematologic/ Lymphatic: Denies: Easy Bruising, Easy Bleeding VTE Information - Inpt Only VTE Present on Admission: No - Physical Exam Vitals/I&O's: Vital Signs Temp Pulse Resp BP Pulse Ox 98.2 F 71 16 152/89 H 97 12/14/20 10:57 12/14/20 10:57 12/14/20 10:57 12/14/20 10:57 12/14/20 10:57 Oxygen Delivery Method Room Air Weight: 96.2 kg Body Mass Index (BMI) 30.4 Finger Stick Blood Glucose 444 General: Alert, Oriented x3, Cooperative HEENT: Atraumatic, PERRLA, EOMI, Normocephalic Neck: Supple, No JVD, Negative Carotid Bruits Lungs: Clear to auscultation, Normal air movement Cardiovascular: Regular rate, No murmurs Abdomen: Bowel Sounds Present, Soft, Non Tender Extremities: No edema, Capillary Refill Less than 3 Seconds Skin: No rashes, No breakdown Musculoskeletal: No Tenderness to Palpation of Joints or Extremities Neurological: Cranial nerves II-XII grossly intact Psych/Mental Status: Normal Affect, Appropriate Microbiology Past 72 Hours 12/13/20 09:10 Interface Orders SARS-CoV-2 Antigen (Rapid) - Final Laboratory Results 12/14/20 11:23: POC Glucose 140 H Current Medications Acetaminophen (Acetaminophen 325 Mg Tablet) 650 mg PO Q4H PRN PRN PRN Reason: Pain Score 1-5 Cefazolin Sodium 2 gm/ Sodium (Chloride) 110 mls @ 150 mls/hr IV PREOP ONE Stop: 12/14/20 13:23 Lactated Ringer's () 1,000 mls @ 100 mls/hr IV .Q10H BALTA Last Admin: 12/14/20 11:19 Dose: 100 mls/hr Documented by: Lactated Ringer's () 1,000 mls @ 75 mls/hr IV .[id number] [facility] Metoclopramide HCl (Metoclopramide 10 Mg/2 Ml Vial) 10 mg IV X1 PRN PRN Reason: NAUSEA/VOMITING Ondansetron HCl (Ondansetron 4 Mg/2 Ml Vial) 4 mg IV X1 PRN PRN Reason: NAUSEA Oxycodone HCl (Oxycodone 5 Mg Tablet) 5 - 10 mg PO Q6H PRN PRN PRN Reason: Pain Score 4-10 Assessment/Plan All Active Problems (Last Updated 11/23/17 @ 13:01 by Dali Zamora) Encounter for screening for malignant neoplasm of colon (Acute) Plan to proceed with a transurethral resection of the bladder tumor instillation mitomycin-C.
--- NOTE | 2020-12-14 13:04 | PCM.DC.URO ---
Discharge Diet: Light diet - advance as tolerated Discharge Activity: Return to Normal Activity Call your doctor if your incision/area has: Sudden Increased Bleeding Allergies/Adverse Reactions: Allergies No Known Allergies Allergy (Verified 12/14/20 10:55) Medications to take at Discharge Citalopram [Celexa] 40 mg PO DAILY 03/28/15 Atorvastatin Calcium [Lipitor] 20 mg PO QHS 11/10/17 Metformin HCl [Glucophage] 1,000 mg PO BID 11/10/17 Glipizide [Glipizide ER] 5 mg PO DAILY 11/20/20 Omeprazole [Prilosec] 20 mg PO DAILY 11/20/20 Aspirin E.C. [Ecotrin] 81 mg PO DAILY@0800 12/07/20 Ciprofloxacin [Cipro] 500 mg PO BID #10 tab 12/14/20 Hydrocodone Bitart/Apap 5-325 [[place] 5MG-325MG] 1 tablet PO Q4H PRN PRN 7 Days #14 tablet 12/14/20 The following prescriptions were given: Ciprofloxacin [Cipro] 500 mg PO BID #10 tab Transmission Status: Pending to [id number] Hydrocodone Bitart/Apap 5-325 [[place] 5MG-325MG] 1 tablet PO Q4H PRN PRN 7 Days #14 tablet PRN Reason: Pain Transmission Status: Received by [id number] Primary Care Physician: Gilberto Rosario MD [Primary Care Provider] - Test Results: Test results from this visit will be discussed in further detail at your follow-up appointment, if applicable. Please Follow Up With: Randolph Knowles MD When: in 2 weeks, please call to make an appointment.
--- NOTE | 2020-12-14 13:31 | PCM.OPRPT ---
Report of Operation Date of Procedure: 12/14/20 Pre-Operative Diagnosis: Bladder tumor large Post-Operative Diagnosis: Same Surgery/Procedure Performed:: Transurethral resection of a large bladder tumor and instillation mitomycin-C Description of Surgical Findings:: Patient presented to the hospital for treatment of a tumor that was found in the bladder with a very large bladder tumor. Patient understands is possible it may not be able to resect the entire tumor. Patient also understands is possible that the patient may need multiple procedures or more invasive procedures to cure him of this cancer. Patient was taken back to the operating room after smooth induction of anesthesia the patient was placed supine on the table. The patient was placed in dorsolithotomy position. The urethra and genitals prepped and draped in usual sterile fashion. I went into the bladder with a 30 degree lens and a cystoscope and identified the tumor the tumor was about 5 centimeters in size and occupying mostly the trigone, left side and left wall of the bladder. The right and left ureteral orifice were identified. The tumor was involved not involved in the ureteral orifices. I then placed the resectoscope and the bladder and resected the entire tumor down to the muscle. And then cauterized the resection base to obtained hemostasis. Then mitomycin-C 40 cc was placed into the bladder for a post dose instillation. We then placed the catheter in the bladder and the patient was taken back to the PACU in stable condition. Type of Anesthesia:: General Drains: none - Admit VTE Documentation VTE Present on Admission: No VTE Mechan Device Prophylaxis: SCD's
[2020-12-14 13:40] VITALS: BP 145/81; BP 152/89; PULSE 83; RESP 16; TEMP 36.6; O2SAT 94
[2020-12-14 13:45] VITALS: BP 152/89; BP 154/83; PULSE 85; RESP 16; O2SAT 92
[2020-12-14 14:00] VITALS: BP 146/81; BP 152/89; PULSE 86; RESP 16; O2SAT 92
[2020-12-14 14:13] VITALS: BP 152/89; BP 160/85; PULSE 82; RESP 16; TEMP 36.4; O2SAT 97
[2020-12-14 14:21] LABS: Bedside Glucose 140 mg/dL (70-110)
[2020-12-14 14:55] VITALS: BP 148/83; BP 152/89; PULSE 88; RESP 16; TEMP 36.6; O2SAT 96
== END 2020-12-14 14:56 | disposition home or self-care (01) ==
LOC: SDC 10:33 → AC 10:34
PROVIDERS: Anesthesiology; PCP Family Medicine; Referring Provider Urology; Visit Provider Urology
PROC: 0T5B8ZZ Destruction of Bladder, Via Natural or Artificial Opening Endoscopic (ICD-10-PCS; CPT 51720; principal; 2020-12-14 12:40)
DX: C67.0 Malignant neoplasm of trigone of bladder (principal); C67.2 Malignant neoplasm of lateral wall of bladder; E10.9 Type 1 diabetes mellitus without complications; N30.30 Trigonitis without hematuria; E78.00 Pure hypercholesterolemia, unspecified; F32.9 Major depressive disorder, single episode, unspecified; F41.9 Anxiety disorder, unspecified; I69.392 Facial weakness following cerebral infarction; Z20.822 Contact with and (suspected) exposure to COVID-19; Z87.39 Personal history of other diseases of the musculoskeletal system and connective tissue; Z79.82 Long term (current) use of aspirin; Z79.84 Long term (current) use of oral hypoglycemic drugs; Z79.899 Other long term (current) drug therapy; Z87.891 Personal history of nicotine dependence
CPT/HCPCS: 52235; 00912; 36415; 82962; 85025; 87426; 88305; 88307; 93005; C9803; J7120; J2405; J3490; J9280

== ENCOUNTER → 2021-04-15 08:39 | Outpatient (CLI) | payer MEDICARE, OTHER, SELFPAY ==
[2021-04-15 09:59] LABS: Absolute Lymphocyte Count 1.06 X10^3/uL (0.83-4.51); Absolute Neutrophil Count 3.7 X10^3/uL (2.0-7.7); Basophil# 0.04 X10^3/uL; Basophil% 0.7 % (0-1); Eosinophil# 0.34 X10^3/uL; Eosinophils% 6.1 % (0-5); Hematocrit 40.6 % (40-54); Hemoglobin 13.6 g/dL (13.0-16.5); Lymphocyte # 1.06 X10^3/ul (0.83-4.51); Lymphocyte % 19.2 % (19-41); Mean Corp Hgb Conc 33.5 g/dL (32-36); Mean Corpuscular Hgb 31.8 pg (27.0-32.0); Mean Corpuscular Volume 94.9 fL (80-94); Mean Platelet Vol. 10.5 fl (6.2-12.0); Monocyte# 0.37 X10^3/uL; Monocyte% 6.7 % (0-10); NRBC Flagged by Analyzer 0 % (0-5); Neutrophil # 3.71 X10^3/uL (2.7-7.7); Neutrophil % 67.1 % (47-70); Platelet Count 200 K/mm3 (150-450); RBC Distribution Width CV 12.2 % (11.6-14.6); Red Blood Count 4.28 M/mm3 (4.6-6.2); White Blood Count 5.5 K/mm3 (4.4-11.0)
[2021-04-15 10:40] LABS: ALB/GLOB Ratio 0.9 RATIO (0.9-2.4); AST(SGOT) 36 U/L (15-37); Alanine Aminotransfer ALT/SGPT 53 U/L (16-61); Albumin, Serum 3.5 g/dL (3.2-5.0); Alkaline Phosphatase 68 U/L (45-117); Anion Gap 10 (5-15); BUN 18 mg/dL (7-18); BUN/Creat Ratio 13.8 RATIO (10-20); Calcium,Total 8.6 mg/dL (8.5-10.1); Chloride 107 mmol/L (98-107); Cholesterol 125 mg/dL (200); EST Glomerular Filtration Rate 58 mL/min (>60); Est Glom Filt Rate - Afr Amer 70 mL/min (>60); Globulin 3.7 g/dL (2.2-4.2); Glucose 173 mg/dL (74-106); High Density Lipoprotein 36 mg/dL; Potassium 4.6 mmol/L (3.5-5.1); Protein, Total 7.2 g/dL (6.4-8.2); Sodium Level 138 mmol/L (136-145); Triglycerides 290 mg/dL; Very Low Density Lipoprotein 58 mg/dL (5-40)
== END ==
LOC: MTLAB 08:40 → MFPLAB 13:50
PROVIDERS: PCP Family Medicine; Referring Provider Family Medicine; Visit Provider Family Medicine
DX: E78.5 Hyperlipidemia, unspecified (principal)
CPT/HCPCS: 36415; 80053; 80061; 85025

== ENCOUNTER → 2021-05-15 08:40 | Outpatient (CLI) | payer MEDICARE, OTHER, SELFPAY | PROVIDERS: PCP Family Medicine; Referring Provider Urology; Visit Provider Urology | DX: N39.0 Urinary tract infection, site not specified (principal) | CPT/HCPCS: 87077; 87086; 87088 ==

== ENCOUNTER → 2021-06-24 | Outpatient (CLI) | payer MEDICARE, OTHER, SELFPAY ==
--- NOTE | 2021-06-24 10:18 | CYSPIN_PTH ---
PATIENT: KELLE GARCIA LOC: [facility] U#:[id number] AGE/SX: 70/M ROOM: RE06/24/[address]: Dr. Randolph Knowles MD : 1950 BED: DIS: 06/24/2021 SPEC #: [id number] RECD: 06/25/21 08:21 STATUS: LALIT REBrendon #: [id number] ESTRELLITA: 06/24/21 10:[address]: Randolph Knowles DEPT: CYTOLOGY RECD BY: Kerwin Rose ENTERED: 06/25/21 08:22 SP TYPE: CYSPIN FL OTHR DR: Dr. Gilberto Rosario MD Tissues: Urine Procedures: Pap Stain (control) Special Stain Group II Cytospin Fluid HEADER OPERATION: Not noted PRE-OP DIAGNOSIS: Malignant neoplasm of bladder TISSUE SUBMITTED: Urine for cytology DIAGNOSIS CYTOLOGY Urine for cytology (cytospin): Negative for malignant cells. Marked acute inflammation. See comment. 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 CYTOLOGY STUDY Slides are reviewed. CYTOLOGY GROSS Received is 10 ml of yellow cloudy fluid labeled with the patient's name and and designated per the requisition as urine. Submitted for cytology preparation. / tera 06/25/2021 TC:2 CPT: 25507
[2021-06-24 13:16] LABS: Cytology, Body Fluid / CSF SEE PATHOLOGY REPORT
== END | disposition home or self-care (01) ==
LOC: LABSPEC 13:00
PROVIDERS: PCP Family Medicine; Referring Provider Urology; Visit Provider Urology
DX: N30.00 Acute cystitis without hematuria (principal); Z85.51 Personal history of malignant neoplasm of bladder
CPT/HCPCS: 87077; 87086; 87088; 88108; 88313

== ENCOUNTER 2021-07-10 09:33 | Day surgery (SDC) | payer MEDICARE, OTHER, SELFPAY ==
[2021-07-03 13:44] LABS: Hematocrit 40.4 % (40-54); Hemoglobin 13.9 g/dL (13.0-16.5); Mean Corp Hgb Conc 34.4 g/dL (32-36); Mean Corpuscular Hgb 33.3 pg (27.0-32.0); Mean Corpuscular Volume 96.7 fL (80-94); Mean Platelet Vol. 10.6 fl (6.2-12.0); Platelet Count 183 K/mm3 (150-450); RBC Distribution Width CV 12.3 % (11.6-14.6); RBC Distribution Width SD 43.8 fl (35.1-43.9); Red Blood Count 4.18 M/mm3 (4.6-6.2); White Blood Count 5.1 K/mm3 (4.4-11.0)
[2021-07-03 14:13] LABS: Hemoglobin A1c 6.8 % (3.8-5.6)
[2021-07-03 14:15] LABS: Anion Gap 7 (5-15); BUN 18 mg/dL (7-18); BUN/Creat Ratio 10.8 RATIO (10-20); Calcium,Total 8.7 mg/dL (8.5-10.1); Chloride 106 mmol/L (98-107); Creatinine, Serum 1.66 mg/dL (0.70-1.30); EST Glomerular Filtration Rate 44 mL/min (>60); Est Glom Filt Rate - Afr Amer 53 mL/min (>60); Glucose 248 mg/dL (74-106); Potassium 5.4 mmol/L (3.5-5.1); Sodium Level 135 mmol/L (136-145)
[2021-07-10] VITALS (13 sets, daily range): BP systolic 118–166; BP diastolic 62–95; PULSE 59–88; RESP 16–18; TEMP 36.1–37.1; O2SAT 93–98; BMI 30.6
[2021-07-10] MEDS: Lactated Ringers 1,000 ML 15 ML IV (09:50)
[2021-07-10 10:30] LABS: Bedside Glucose 203 mg/dL (70-110)
[2021-07-10] MEDS: Cefazolin 2 GM in 0.9% Normal Saline 100 ML IV (10:45)
--- NOTE | 2021-07-10 10:50 | PCM.HP.STD ---
HPI - General HPI Narrative KELLE GARCIA, is a 70 M who presents for laser bladder stones and TURP [facility] Medical History (Updated 07/03/21 @ 09:04 by Margaret Soto) Alcohol use Anxiety Arthritis Bladder disease Cancer Diabetes Diabetes Dietary restriction Former smoker Gastric reflux High cholesterol High cholesterol History of stress test History of stroke Prostate disease Shortness of breath on exertion Stroke/cerebrovascular accident Wears glasses Home Medications citalopram 40 mg PO DAILY 03/28/15 [History Last Taken 03/28/15] atorvastatin 20 mg PO QHS 11/10/17 [History Last Taken 11/20/20] metformin 1,000 mg PO BID 11/10/17 [History Last Taken Unknown] glipizide 5 mg PO DAILY 11/20/20 [History Last Taken Unknown] omeprazole 20 mg PO DAILY 11/20/20 [History Last Taken 11/23/20] aspirin 81 mg PO DAILY@0800 12/07/20 [History Last Taken 06/30/21] sulfamethoxazole-trimethoprim [Bactrim DS] 1 tab PO BID 07/03/21 [History Last Taken Unknown] ciprofloxacin HCl 500 mg PO BID #14 tab 07/10/21 [Rx Last Taken Unknown] ibuprofen 600 mg PO Q6H PRN #20 tab 07/10/21 [Rx Last Taken Unknown] Allergy/AdvReac Type Severity Reaction Status Date / Time No Known Allergies Allergy Verified 07/03/21 08:50 Family History (Updated 11/23/17 @ 13:00 by Dali Zamora) Mother Diabetes Sister Seizures Father CVA (cerebral vascular accident) Surgical History (Updated 07/03/21 @ 09:04 by Margaret Soto) history carotid stents History of carpal tunnel release Hx of transurethral destruction of bladder lesion S/P colonoscopy (~11/16/17) Social History (Updated 11/23/17 @ 13:[address] Alfonzo Chau MD) Smoking Status: Former smoker alcohol intake: never substance use type: does not use Vital Signs Vital Signs Vital Signs: 07/10/21 10:07 Temperature 97.0 F L Temperature Source Temporal Pulse Rate 88 Respiratory Rate 16 Respiratory Pattern Normal Blood Pressure 141/90 H Blood Pressure Mean 107 Blood Pressure Source Monitor Blood Pressure Position Semi-Fowlers Blood Pressure Location Right Arm Pulse Ox 94 Oxygen Delivery Method Room Air Weight Weight: 96.7 kg Body Mass Index (BMI) 30.6 Results Lab / Micro Data Result Diagrams: 07/03/21 13:17 07/03/21 13:17 Labs: Laboratory Results - last 24 hr 07/10/21 10:00: POC Glucose 203 H
--- NOTE | 2021-07-10 10:50 | PCM.DC ---
Discharge Instructions Diet Discharge Diet: No restrictions Activity Discharge Activity: May Not Drive (while taking narcotic pain medications.) Dressing / Incision Call your doctor if you observe: Fever of 101 or Higher Follow Up Care Please Follow Up With: Randolph Knowles MD When: Call [phone] for an appointment Test Results: Test results from this visit will be discussed in further detail at your follow-up appointment, if applicable. Discharge Plan Admission Primary Reason for Your Visit: YAHAIRA Attending Provider: Randolph Knowles Primary Care Provider: Gilberto Rosario Consulting Providers: Rocael Kerr Discharge Orders/Prescriptions Prescriptions: New ibuprofen 600 mg tablet 600 mg PO Q6H PRN (Reason: pain) Qty: 20 RF: 0 ciprofloxacin HCl 500 mg tablet 500 mg PO BID Qty: 14 RF: 0 No Action citalopram 40 MG tablet 40 mg PO DAILY RF: 0 metformin 500 MG tablet 1,000 mg PO BID RF: 0 atorvastatin 80 MG tablet 20 mg PO QHS RF: 0 glipizide 5 MG tablet extended release 24hr 5 mg PO DAILY RF: 0 omeprazole 20 MG capsule 20 mg PO DAILY RF: 0 aspirin 81 MG tablet 81 mg PO DAILY@0800 RF: 0 sulfamethoxazole-trimethoprim [Bactrim DS] 800-160 mg Tablet 1 tab PO BID RF: 0 Referrals / Follow Up: Randolph Knowles MD [STAFF PHYSICIAN] - Gilberto Rosario MD [Primary Care Provider] - Disposition Disposition (needs filled in before D/C Order can be placed): Home, Self Care
--- NOTE | 2021-07-10 10:51 | OP.PCM_ITS ---
Report of Operation Date of Procedure: 07/10/21 Pre-Operative Diagnosis: bph with bladder stones Post-Operative Diagnosis: same Surgery/Procedure Performed:: TURP, laser bladder stones, large, TURBT medium Description of Surgical Findings:: In the preoperative setting I discussed with the patient how the surgery would be done with expect afterwards. We discussed how a prostate resection is done and we discussed the risk of the surgery including, bleeding, infection, retrograde ejaculation, changes with ejaculation or intercourse,. We discussed the possibility that the resection of the prostate may not alleviate his urinary symptoms. We discussed the small risk of developing scar tissue along the urethral channel and strictures. We also discussed the chance of the prostate could grow back and he may need further surgery or treatment in the future for prostate problems. Went into the bladder using a 24 Dominican cystoscope. We used the laser bridge through the scope for continuous irrigation. Then using the laser bridge we introduced a laser fiber into the bladder and the stone in the bladder was trapped against the back wall. The stone was then lasered using laser lithotripsy the small little pieces all the pieces were evacuated on the bladder. After all the stones were removed then the scope was removed there was minimal bleeding. Veronikae resected the bladder wall and sent off specimen, mediums size resection of bladder wall where stones stuck to bladder. Patient was taken back to the operating room, timeout procedure was performed, he was identified and marked and placed on the operating room table. He u nderwent general anesthesia. He was placed in dorsolithotomy position. Penis and testicles were prepped and draped in usual sterile fashion. Went into the bladder using the visual obturator with a resectoscope. Once inside the bladder identified the right and left ureteral orifice. I then identified the prostate and the anatomy of the prostate. I marked out the area of the sphincter and the verumontanum was identified. I then proceeded with the prostate resection first resected the median lobe. And then resected the right lobe of the prostate. Then to resect the left lobe of the prostate. I then resected the apical tissue of the prostate. Made sure that there was no injury to the sphincter or the verumontanum was still intact. At the end of the resection all the chips were Ellik out of the bladder. I then identified the left and right ureteral orifice and these were confirmed to be in good position and effluxing and not injured. The resectoscope was removed, a 22 Dominican catheter was placed into the bladder on continuous irrigation. And the urine was fairly light pink color and draining normally. He was taken back to the PACU in good condition. Type of Anesthesia: General Drains: 22fr 3 way Admit VTE Documentation VTE Present on Admission: No VTE Mechan Device Prophylaxis: SCD's VTE Pharm Prophylaxis ordered?: No
--- NOTE | 2021-07-10 12:10 | BLB_PTH ---
PATIENT: KELLE GARCIA LOC: [facility] [place] U#:[id number] AGE/SX: 70/M ROOM: RE07/10/[address]: Dr. Randolph Knowles MD : 1950 BED: DIS: 07/11/2021 SPEC #: [id number] RECD: 07/10/21 12:52 STATUS: LALIT CHAVEZ #: [id number] ESTRELLITA: 07/10/21 12:[address]: Randolph Knowles DEPT: SURGICAL PATHOLOGY RECD BY: Yareli Bassett ENTERED: 07/11/21 09:23 SP TYPE: TURB OTHR DR: MD Dr. Gilberto Worrell MD Tissues: A - Urinary bladder, NOS B - Prostate, NOS Procedures: Special Stain Group I Surgery Specimen Level IV AFB Stain (control) GMS Stain (control) HEADER OPERATION: Cystoscopy, TUR of prostate PRE-OP DIAGNOSIS: BPH with bladder stones; history bladder cancer TISSUE SUBMITTED: A ? Bladder tissue and bladder stones, B ? Prostate tissue MICROSCOPIC DIAGNOSIS A. Bladder tissue and bladder stones, TUR: Fragments of urothelial mucosa with chronic inflammation. Fragments of stone. Negative for malignancy. See comment. B. Prostate tissue, TUR: Benign prostatic hyperplasia, glandular and stromal type. Moderate chronic inflammation and focal non-necrotizing granuloma formation. Fragments of stone. See comment. SJ:tera 07/12/2021 COMMENT A. The specimen predominantly consists of stones. B. Special stains for acid fast bacilli and fungi are negative for organisms; matched controls are appropriate. 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 MICROSCOPIC DESCRIPTION Slides are reviewed. GROSS DESCRIPTION A - Received in fixative is one container labeled with the patient's name and designated bladder tissue and bladder stones. The specimen consists of multiple irregular fragments of romero soft tissue mixed with fragments of stone that in aggregate measure 3 x 2.5 x 0.3 cm. The specimen is totally submitted in one cassette. The stones could not be from the soft tissue. B - Received is one container labeled with the patient's name and designated prostate tissue. The specimen consists of multiple irregular fragments of pink-romero, rubbery, soft tissue that in aggregate weigh 4.7 gm and measure in aggregate 4 x 4 x 0.5 cm. A few fragments of stones are also noted. The entire specimen is submitted in four cassettes. / SJ:rg 07/11/21 TC:5 CPT: 21753 x2, 60678 x2
[2021-07-10 14:16] LABS: Bedside Glucose 188 mg/dL (70-110)
[2021-07-10] MEDS: metFORMIN HCl 1,000 MG Tablet 1000 MG PO (17:06)
[2021-07-10] MEDS: 0.9% Saline Lock 10 ML Syringe IV (20:56)
[2021-07-10] MEDS: Atorvastatin Calcium 20 MG Tablet PO (20:59)
[2021-07-10] MEDS: Ciprofloxacin 400 MG/200 ML BAG 200 MG IV (21:00)
[2021-07-11] MEDS: 0.9% Saline Lock 10 ML Syringe IV (00:13)
[2021-07-11 00:16] VITALS: BP 157/87; PULSE 91; RESP 18; TEMP 36.9; O2SAT 93
[2021-07-11 00:21] VITALS: BMI 30.6
[2021-07-11 04:06] VITALS: BP 165/84; PULSE 73; RESP 16; TEMP 36.8; O2SAT 95
[2021-07-11] MEDS: Ibuprofen 600 MG Tablet PO (04:19)
[2021-07-11 04:24] VITALS: BMI 30.6
--- NOTE | 2021-07-11 07:53 | NURSING ---
Green DC'd per orders. Tip intact. Pt tolerated well. Pt aware to alert staff when he feels the urge to void. RN Paige at bedside and aware.
[2021-07-11 08:00] VITALS: BP 146/84; PULSE 67; RESP 16; TEMP 37.1; O2SAT 96; BMI 30.6
[2021-07-11] MEDS: Pantoprazole Sodium 20 MG Tablet PO (09:11)
[2021-07-11] MEDS: glipiZIDE XL 5 MG Tablet PO (09:11)
[2021-07-11] MEDS: metFORMIN HCl 1,000 MG Tablet 1000 MG PO (09:12)
[2021-07-11] MEDS: Citalopram 40 MG TABLET PO (09:12)
[2021-07-11] MEDS: Ciprofloxacin 400 MG/200 ML BAG 200 MG IV (09:12)
--- NOTE | 2021-07-11 11:04 | PHA.DC.MC ---
Pharmacy Service has performed discharge medication reconciliation and counseling for this patient. The patient was counseled on the following discharge medications and changes in medications for homegoing were reviewed. 1. CIPRO 2. IBUPROFEN The Reason for Use, instructions for use, and potential side effects were reviewed for all new medications. The patient's questions regarding all of their medications were answered. The patient was able to verbally demonstrate an understanding of their discharge medications. Home Medications citalopram 40 mg PO DAILY 03/28/15 atorvastatin 20 mg PO QHS 11/10/17 metformin 1,000 mg PO BID 11/10/17 glipizide 5 mg PO DAILY 11/20/20 omeprazole 20 mg PO DAILY 11/20/20 aspirin 81 mg PO DAILY@0800 12/07/20 sulfamethoxazole-trimethoprim [Bactrim DS] 1 tab PO BID 07/03/21 ciprofloxacin HCl 500 mg PO BID #14 tab 07/10/21 ibuprofen 600 mg PO Q6H PRN #20 tab 07/10/21 The patient's discharge medication list was reviewed for discrepancies and discrepancies were resolved.
[2021-07-11 12:07] VITALS: BMI 30.6
== END 2021-07-11 12:35 | disposition home or self-care (01) ==
LOC: SDC 09:34 → AC 10:46 → MS3 15:38
PROVIDERS: Anesthesiology; PCP Family Medicine; Referring Provider Urology; Visit Provider Urology
PROC: (CPT 52235; principal; 2021-07-10 12:00)
DX: N40.1 Benign prostatic hyperplasia with lower urinary tract symptoms (principal); N13.8 Other obstructive and reflux uropathy; N21.0 Calculus in bladder; C67.2 Malignant neoplasm of lateral wall of bladder; N30.00 Acute cystitis without hematuria; E11.9 Type 2 diabetes mellitus without complications; E78.00 Pure hypercholesterolemia, unspecified; K21.9 Gastro-esophageal reflux disease without esophagitis; M19.90 Unspecified osteoarthritis, unspecified site; F41.9 Anxiety disorder, unspecified; Z79.82 Long term (current) use of aspirin; Z79.84 Long term (current) use of oral hypoglycemic drugs; Z79.899 Other long term (current) drug therapy; Z87.891 Personal history of nicotine dependence; Z86.73 Personal history of transient ischemic attack (TIA), and cerebral infarction without residual deficits
CPT/HCPCS: 00912; 52235; 52318; 52601; 36415; 80048; 82962; 83036; 85027; 88305; 88307; 88312; J7120; A4216; J0744; J2405

== ENCOUNTER → 2021-07-25 | Outpatient (CLI) | payer MEDICARE, OTHER, SELFPAY | END | disposition home or self-care (01) | LOC: LABSPEC 16:57 | PROVIDERS: PCP Family Medicine; Visit Provider Urology | DX: R31.0 Gross hematuria (principal) | CPT/HCPCS: 87086 ==

== ENCOUNTER 2021-11-14 11:07 | Outpatient (CLI) | payer MEDICARE, OTHER, SELFPAY ==
[2021-11-14 12:26] LABS: Absolute Lymphocyte Count 1.38 X10^3/uL (0.83-4.51); Absolute Neutrophil Count 4.2 X10^3/uL (2.0-7.7); Basophil# 0.07 X10^3/uL; Basophil% 1.1 % (0-1); Eosinophils% 7.5 % (0-5); Hematocrit 41.4 % (40-54); Hemoglobin 14.3 g/dL (13.0-16.5); Lymphocyte # 1.38 X10^3/ul (0.83-4.51); Lymphocyte % 20.7 % (19-41); Mean Corp Hgb Conc 34.5 g/dL (32-36); Mean Corpuscular Hgb 32.4 pg (27.0-32.0); Mean Corpuscular Volume 93.9 fL (80-94); Mean Platelet Vol. 10.9 fl (6.2-12.0); Monocyte# 0.45 X10^3/uL; Monocyte% 6.8 % (0-10); NRBC Flagged by Analyzer 0 % (0-5); Neutrophil # 4.24 X10^3/uL (2.7-7.7); Neutrophil % 63.6 % (47-70); Platelet Count 216 K/mm3 (150-450); RBC Distribution Width CV 12.6 % (11.6-14.6); RBC Distribution Width SD 43.2 fl (35.1-43.9); Red Blood Count 4.41 M/mm3 (4.6-6.2); White Blood Count 6.7 K/mm3 (4.4-11.0)
[2021-11-14 13:06] LABS: Hemoglobin A1c 7.5 % (3.8-5.6)
[2021-11-14 13:19] LABS: AST(SGOT) 36 U/L (15-37); Alanine Aminotransfer ALT/SGPT 56 U/L (16-61); Albumin, Serum 3.7 g/dL (3.2-5.0); Alkaline Phosphatase 64 U/L (45-117); Anion Gap 6 (5-15); BUN 19 mg/dL (7-18); BUN/Creat Ratio 14.5 RATIO (10-20); Calcium,Total 9.4 mg/dL (8.5-10.1); Chloride 108 mmol/L (98-107); Cholesterol 118 mg/dL (200); Creatinine, Serum 1.31 mg/dL (0.70-1.30); EST Glomerular Filtration Rate 58 mL/min (>60); Est Glom Filt Rate - Afr Amer 70 mL/min (>60); Globulin 3.7 g/dL (2.2-4.2); Glucose 173 mg/dL (74-106); High Density Lipoprotein 33 mg/dL; Potassium 4.3 mmol/L (3.5-5.1); Protein, Total 7.4 g/dL (6.4-8.2); Sodium Level 138 mmol/L (136-145); Triglycerides 274 mg/dL; Very Low Density Lipoprotein 55 mg/dL (5-40)
== END 2021-11-14 23:59 | disposition home or self-care (01) ==
LOC: MFPLAB 11:11
PROVIDERS: PCP Family Medicine; Referring Provider Family Medicine; Visit Provider Family Medicine
DX: E11.9 Type 2 diabetes mellitus without complications (principal); C67.9 Malignant neoplasm of bladder, unspecified; E78.5 Hyperlipidemia, unspecified
CPT/HCPCS: 36415; 80053; 80061; 83036; 85025

== ENCOUNTER 2021-11-18 10:48 | Outpatient (CLI) | payer MEDICARE, OTHER, SELFPAY ==
[2021-11-18 13:19] LABS: PSA,Total - Annual Screen 0.27 ng/mL (0.00-4.00)
== END 2021-11-18 23:59 | disposition home or self-care (01) ==
LOC: LAB 10:51
PROVIDERS: PCP Family Medicine; Referring Provider Urology; Visit Provider Urology
DX: Z12.5 Encounter for screening for malignant neoplasm of prostate (principal)
CPT/HCPCS: 36415; 84153; G0103

== ENCOUNTER → 2022-03-11 | Outpatient (CLI) | payer MEDICARE, OTHER, SELFPAY ==
[2022-03-16 14:30] LABS: Pancreatic Elastase, Fecal > 500 (>200)
[2022-03-17 19:52] LABS: pH, Stool 7.5 (7.0-7.5)
== END | disposition home or self-care (01) ==
LOC: MTLAB 14:02
PROVIDERS: PCP Family Medicine; Referring Provider Family Medicine; Visit Provider Family Medicine
DX: R19.7 Diarrhea, unspecified (principal)
CPT/HCPCS: 82653; 83986

== ENCOUNTER → 2022-09-15 | Outpatient (CLI) | payer MEDICARE, OTHER, SELFPAY ==
[2022-09-15 10:35] LABS: Hemoglobin A1c 8.3 % (3.8-5.6)
[2022-09-15 11:16] LABS: ALB/GLOB Ratio 1.2 RATIO (0.9-2.4); AST(SGOT) 27 U/L (15-37); Alanine Aminotransfer ALT/SGPT 46 U/L (16-61); Albumin, Serum 3.8 g/dL (3.2-5.0); Alkaline Phosphatase 50 U/L (45-117); Anion Gap 12 (5-15); BUN 20 mg/dL (7-18); BUN/Creat Ratio 15.7 RATIO (10-20); Calcium,Total 8.8 mg/dL (8.5-10.1); Chloride 107 mmol/L (98-107); Creatinine, Serum 1.27 mg/dL (0.70-1.30); EST Glomerular Filtration Rate 59 mL/min (>60); Est Glom Filt Rate - Afr Amer 72 mL/min (>60); Globulin 3.1 g/dL (2.2-4.2); Glucose 237 mg/dL (74-106); Potassium 4.3 mmol/L (3.5-5.1); Protein, Total 6.9 g/dL (6.4-8.2); Sodium Level 141 mmol/L (136-145)
== END | disposition home or self-care (01) ==
LOC: MFPLAB 09:29
PROVIDERS: PCP Family Medicine; Referring Provider Family Medicine; Visit Provider Family Medicine
DX: E11.9 Type 2 diabetes mellitus without complications (principal)
CPT/HCPCS: 36415; 80053; 83036

== ENCOUNTER → 2023-03-19 | Outpatient (CLI) | payer MEDICARE, OTHER, SELFPAY ==
[2023-03-19 10:20] LABS: Absolute Lymphocyte Count 1.46 X10^3/uL (0.83-4.51); Absolute Neutrophil Count 3.8 X10^3/uL (2.0-7.7); Basophil# 0.04 X10^3/uL; Basophil% 0.6 % (0-1); Eosinophil# 0.63 X10^3/uL; Hematocrit 41.7 % (40-54); Hemoglobin 14.1 g/dL (13.0-16.5); Lymphocyte # 1.46 X10^3/ul (0.83-4.51); Lymphocyte % 23.2 % (19-41); Mean Corp Hgb Conc 33.8 g/dL (32-36); Mean Corpuscular Hgb 32.7 pg (27.0-32.0); Mean Corpuscular Volume 96.8 fL (80-94); Monocyte# 0.38 X10^3/uL; NRBC Flagged by Analyzer 0 % (0-5); Neutrophil # 3.77 X10^3/uL (2.7-7.7); Platelet Count 213 K/mm3 (150-450); RBC Distribution Width CV 12.2 % (11.6-14.6); RBC Distribution Width SD 43.2 fl (35.1-43.9); Red Blood Count 4.31 M/mm3 (4.6-6.2); White Blood Count 6.3 K/mm3 (4.4-11.0)
[2023-03-19 10:38] LABS: Vitamin D,25 Hydroxy 52.7 ng/mL
[2023-03-19 10:41] LABS: Microalbumin:Creatinine Ratio 12.3 mg/g CRE (<30 mg/g CRE)
[2023-03-19 11:24] LABS: ALB/GLOB Ratio 0.9 RATIO (0.9-2.4); AST(SGOT) 25 U/L (15-37); Alanine Aminotransfer ALT/SGPT 37 U/L (16-61); Albumin, Serum 3.5 g/dL (3.2-5.0); Alkaline Phosphatase 51 U/L (45-117); Anion Gap 11 (5-15); BUN 24 mg/dL (7-18); Calcium,Total 9.2 mg/dL (8.5-10.1); Chloride 108 mmol/L (98-107); Cholesterol 110 mg/dL (200); Creatinine, Serum 1.41 mg/dL (0.70-1.30); EST Glomerular Filtration Rate 53 mL/min (>60); Est Glom Filt Rate - Afr Amer 64 mL/min (>60); Globulin 3.7 g/dL (2.2-4.2); Glucose 193 mg/dL (74-106); High Density Lipoprotein 32 mg/dL; Potassium 4.4 mmol/L (3.5-5.1); Protein, Total 7.2 g/dL (6.4-8.2); Sodium Level 140 mmol/L (136-145); Triglycerides 254 mg/dL; Very Low Density Lipoprotein 51 mg/dL (5-40)
== END | disposition home or self-care (01) ==
LOC: MFPLAB 08:25
PROVIDERS: PCP Family Medicine; Visit Provider Family Medicine
DX: E11.22 Type 2 diabetes mellitus with diabetic chronic kidney disease (principal); N18.31 Chronic kidney disease, stage 3a
CPT/HCPCS: 36415; 80053; 80061; 82043; 82306; 82570; 85025

== ENCOUNTER → 2023-07-15 | Outpatient (CLI) | payer MEDICARE, OTHER, SELFPAY | END | disposition home or self-care (01) | PROVIDERS: PCP Family Medicine; Referring Provider Urology; Visit Provider Urology | DX: N40.1 Benign prostatic hyperplasia with lower urinary tract symptoms (principal) | CPT/HCPCS: 36415; 84153 ==

== ENCOUNTER → 2023-09-21 | Outpatient (CLI) | payer MEDICARE, OTHER, SELFPAY ==
[2023-09-21 12:26] LABS: Absolute Lymphocyte Count 1.03 X10^3/uL (0.83-4.51); Absolute Neutrophil Count 5.9 X10^3/uL (2.0-7.7); Basophil# 0.05 X10^3/uL; Basophil% 0.6 % (0-1); Eosinophil# 0.35 X10^3/uL; Eosinophils% 4.5 % (0-5); Hematocrit 43.6 % (40-54); Hemoglobin 14.4 g/dL (13.0-16.5); Lymphocyte # 1.03 X10^3/ul (0.83-4.51); Lymphocyte % 13.1 % (19-41); Mean Corpuscular Hgb 31.1 pg (27.0-32.0); Mean Corpuscular Volume 94.2 fL (80-94); Mean Platelet Vol. 11.4 fl (6.2-12.0); Monocyte% 6.4 % (0-10); NRBC Flagged by Analyzer 0 % (0-5); Neutrophil # 5.89 X10^3/uL (2.7-7.7); Platelet Count 191 K/mm3 (150-450); RBC Distribution Width CV 12.7 % (11.6-14.6); RBC Distribution Width SD 43.7 fl (35.1-43.9); Red Blood Count 4.63 M/mm3 (4.6-6.2); White Blood Count 7.9 K/mm3 (4.4-11.0)
[2023-09-21 13:52] LABS: ALB/GLOB Ratio 0.9 RATIO (0.9-2.4); AST(SGOT) 23 U/L (15-37); Alanine Aminotransfer ALT/SGPT 41 U/L (16-61); Albumin, Serum 3.6 g/dL (3.2-5.0); Alkaline Phosphatase 66 U/L (45-117); Anion Gap 9 (5-15); BUN 16 mg/dL (7-18); Chloride 108 mmol/L (98-107); Cholesterol 131 mg/dL (200); Creatinine, Serum 1.33 mg/dL (0.70-1.30); EST Glomerular Filtration Rate 56 mL/min (>60); Est Glom Filt Rate - Afr Amer 68 mL/min (>60); Globulin 3.8 g/dL (2.2-4.2); Glucose 232 mg/dL (74-106); High Density Lipoprotein 35 mg/dL; Potassium 4.3 mmol/L (3.5-5.1); Protein, Total 7.4 g/dL (6.4-8.2); Sodium Level 141 mmol/L (136-145); Triglycerides 251 mg/dL; Very Low Density Lipoprotein 50 mg/dL (5-40)
[2023-09-21 19:39] LABS: Hemoglobin A1c 7.3 % (3.8-5.6)
== END | disposition home or self-care (01) ==
LOC: MFPLAB 09:19
PROVIDERS: PCP Family Medicine; Visit Provider Family Medicine
DX: J31.0 Chronic rhinitis (principal); E11.22 Type 2 diabetes mellitus with diabetic chronic kidney disease; N18.9 Chronic kidney disease, unspecified
CPT/HCPCS: 36415; 80053; 80061; 83036; 85025

== ENCOUNTER → 2023-09-24 | Outpatient (CLI) | payer MEDICARE, OTHER, SELFPAY ==
[2023-09-24 12:21] LABS: Bacteria 0 SEEN /hpf (None Seen); Mucous, Urine 0 SEEN /hpf (<or=2+); Red Blood Cells-Urine 0 SEEN /hpf (0-5); Squamous Epithelial Cells - UA 0 SEEN /hpf (0-5)
[2023-09-24 15:52] LABS: Glucose, Dipstick 100 mg/dl (Normal); Ketone-Dipstick 5 mg/dl (Negative); Leukocyte Esterase-Dipstick 25 /ul (Negative); Nitrite-Dipstick Negative (Negative); Occult Blood-Urine 10 /ul (Negative); Protein-Dipstick 30 mg/dl (Negative); Specific Gravity, Urine 1.025 (1.002-1.030); Urine Urobilinogen Normal (Normal)
[2023-09-24 15:53] LABS: Color, Urine Yellow (Yellow); Urine Bilirubin Dipstick 1 mg/dL (Negative); Urine Clarity Clear (Clear)
[2023-09-24 15:59] LABS: White Blood Cells 0-5 SEEN /hpf (0-5)
[2023-09-24 16:19] LABS: Microalbumin:Creatinine Ratio 35.6 mg/g CRE (<30 mg/g CRE)
== END | disposition home or self-care (01) ==
LOC: LABSPEC 12:20
PROVIDERS: PCP Family Medicine; Visit Provider Family Medicine
DX: N18.31 Chronic kidney disease, stage 3a (principal)
CPT/HCPCS: 81001; 82043; 82570

== ENCOUNTER → 2024-03-25 | Outpatient (CLI) | payer MEDICARE, OTHER, SELFPAY ==
[2024-03-25 10:25] LABS: Hematocrit 40.6 % (40-54); Hemoglobin 13.8 g/dL (13.0-16.5); Mean Corpuscular Volume 94.2 fL (80-94); Platelet Count 183 K/mm3 (150-450); RBC Distribution Width CV 12.3 % (11.6-14.6); RBC Distribution Width SD 42.7 fl (35.1-43.9); Red Blood Count 4.31 M/mm3 (4.6-6.2); White Blood Count 5.2 K/mm3 (4.4-11.0)
[2024-03-25 10:52] LABS: AST(SGOT) 46 U/L (15-37); Alanine Aminotransfer ALT/SGPT 74 U/L (16-61); Albumin, Serum 3.5 g/dL (3.2-5.0); Alkaline Phosphatase 68 U/L (45-117); Anion Gap 10 (5-15); BUN 20 mg/dL (7-18); BUN/Creat Ratio 12.1 RATIO (10-20); Calcium,Total 8.6 mg/dL (8.5-10.1); Chloride 107 mmol/L (98-107); Creatinine, Serum 1.65 mg/dL (0.70-1.30); EST Glomerular Filtration Rate 44 mL/min (>60); Est Glom Filt Rate - Afr Amer 53 mL/min (>60); Globulin 3.5 g/dL (2.2-4.2); Glucose 227 mg/dL (74-106); Hemoglobin A1c 7.2 % (3.8-5.6); Potassium 4.3 mmol/L (3.5-5.1); Sodium Level 140 mmol/L (136-145)
== END | disposition home or self-care (01) ==
LOC: MFPLAB 08:38
PROVIDERS: PCP Family Medicine; Visit Provider Family Medicine
DX: E11.22 Type 2 diabetes mellitus with diabetic chronic kidney disease (principal); N18.31 Chronic kidney disease, stage 3a
CPT/HCPCS: 36415; 80053; 83036; 85027

== ENCOUNTER 2024-04-21 10:00 | Outpatient (RCR) | payer MEDICARE, OTHER, SELFPAY ==
--- NOTE | 2024-04-05 11:48 | HP.PTEVAL_ITS ---
Patient's Visit Information Visit Information Visit Information: KELLE GARCIA is a 73 year old M referred to Physical Therapy by Dr. Sarath Yoon MD with a diagnosis of falls. Date of Evaluation: 04/05/24 Physical Therapist: Sarath Olea, DPT, OCS, CSCS Visit Plan Frequency: 1x/Week Duration: 4-6 Weeks Plan: weekly x 4 for biodex balance test and progression of balance(vest) and head movement grimm bituation exercises via HEP 3each week. Subjective Subjective: I am here for dizzyness spinning and unsteadiness. Has been happening for 5 months. Has fallen a number fo times since due to LOB. Not sure why. Has had 3 strokes overall latest being 6 yrs ago. Spinning is sometimes and once per week or twice. Lasts a few minutes and not sure what starts it. Maybe if turns head certain direction. Unsteadiness is only when dizzy. No cane or walker used or desired. Sleep is OK. sometimes gets dizzy lying down or getting up at night just joe ckly. Not employed. Basic ADLs are good when not dizzy. Steps at home: No Hobbies: riding motorcycle and mowing grass. Still doing without problems. Objective Objective: Walks into PT steadily and confidently. Transfers I chair and bed. Steps reciprocal with one rail. MSQ: only with head nods and turns for 5 seconds mild. Others OK. Coming up from HD gives slight 1 second dizzyness. - B hallpike ankit and - roll test Oculomotor: no nystagmus with gaze or head shake - skew eye deviation adn ocular tilt - head thrust normal pursuit and saccades, no symptoms. Normal VOR, slight quick symptoms. cervical aROM is WFL and UE AROM WFL, symmetrical strength 4/5 UE without myotomal problems. sensation UE WNL to gross light touch. Balance/Special Test Scores Functional Gait Assessment Score: 25 % Disability: 16.6700 CATSIB Score (Max score 120 seconds): 92 WOMAC Total Score: 12 WOMAC Percentatge: 87.5000 Goals Goal 1:: foam stance ec 20 seconds without LOB Goal Time Frame: 4-6 Weeks Goal 2:: Dizzyness with head movements abolished Goal Time Frame: 4-6 Weeks Goal 3:: Pt feel 75% sharon rin overall dizzyness/safety Goal Time Frame: 4-6 Weeks Rehabilitation Potential Physical Therapy Diagnosis: unsteadyness and dizzyness limiting QOL and putting at risk for falls Rehabilitation Potential: Fair Anticipated Interventions Patient/Client Instruction: Educate patient on: Condition and Plan of Care For the Purpose of:: To increase tolerance to activity/condition/position and To improve ability of physical actions for home/community/work/leisure Therapeutic Exercise to Include: Balance training Comment: habituation ex For the Purpose of:: To increase tolerance to activity/condition/position, To improve ability of physical actions for home/community/work/leisure and To improve safety Text: Thank you for the opportunity to evaluate your patient. For Medicare and Medicare HMO plans, please review the plan of care and approve it. It will need to be FAXED BACK to us at [phone] for Medicare purposes. For Medicare only, by signing this I certify the plan of care. Please let me know if there are questions or concerns regarding this plan of care. Physician Signature: Date:
--- NOTE | 2024-04-13 09:38 | HP.PTCOM_ITS ---
PT Communication Note 04/13/[address] Sarath Yoon MD , Thank you for the referral of Terell to [facility] for balance assessment. I have enclosed a copy of his biodex balance testing for your review. I should note that over the weekend, Patient fell after getting up from the floor and losing his balance and it sounds like a orthostatic incident to me as his vestibular testing was not symptomatic for us. To summarize , his Limits of Stability test showed a predispensation to have forward weight shift in his center of gravity and poor weight shift ability in the backward direction. His modified CTSIB showed greater than two standard deviation in both foam conditions lending itself to vestibular weakness in his balance We will continue with our our weekly plan of care to address via HEP these balance deficits and habituation exercise with progression of home activities. Thank you for this referral. Sincerely, Sarath Olea DPT, OCS, CSCS Contact Information
--- NOTE | 2024-05-03 15:35 | HP.PT.NRP ---
Patient Information Patient Information: KELLE GARCIA was seen in my office for initial evaluation on 04/05/24. The following Plan of Care was established for this patient: POC Established Initial Frequency: 1x/Week Initial Duration: 4-6 Weeks Anticipated Interventions Patient/Client Instruction: Educate patient on: Condition and Plan of Care For the Purpose of:: To increase tolerance to activity/condition/position and To improve ability of physical actions for home/community/work/leisure Therapeutic Exercise to Include: Balance training For the Purpose of:: To increase tolerance to activity/condition/position, To improve ability of physical actions for home/community/work/leisure and To improve safety Last Seen Last Seen: This patient was last seen in our office 04/21/24. Pertinent comments regarding their Physical therapy will appear below: Pt seen 3 visits of HEP instruct and was to f/u but cancelled stating he would just continue on with home exercises. I will discontinue at his request. At this point I will be discontinuing this patient from physical therapy. I would be happy to see this patient again in the future if found appropriate by the physician. Thank you! Sarath lOea, DPT, OCS, CSCS Balance/Gait/Functional tests Balance/Special Test Scores Functional Gait Assessment Score: 25 % Disability: 16.6700 CATSIB Score (Max score 120 seconds): 92 WOMAC Total Score: 12 WOMAC Percentage: 87.5000
== END 2024-04-21 19:00 | disposition home or self-care (01) ==
LOC: PT 10:00
PROVIDERS: PCP Family Medicine; Visit Provider Family Medicine
DX: R26.81 Unsteadiness on feet (principal); R29.6 Repeated falls
CPT/HCPCS: 97110; 97161; 97750

== ENCOUNTER → 2024-07-25 | Outpatient (CLI) | payer MEDICARE, OTHER, SELFPAY ==
[2024-07-25 12:44] LABS: PSA,Total - Annual Screen 0.19 ng/mL (0.00-4.00)
== END | disposition home or self-care (01) ==
LOC: LAB 11:04
PROVIDERS: PCP Family Medicine; Referring Provider Urology; Visit Provider Urology
DX: Z12.5 Encounter for screening for malignant neoplasm of prostate (principal); N40.1 Benign prostatic hyperplasia with lower urinary tract symptoms
CPT/HCPCS: 36415; 84153; G0103

== ENCOUNTER → 2024-12-22 | Outpatient (CLI) | payer MEDICARE, OTHER, SELFPAY ==
[2024-12-22 10:41] LABS: ALB/GLOB Ratio 1.5 RATIO (0.9-2.4); AST(SGOT) 36 U/L (<=37); Alanine Aminotransfer ALT/SGPT 41 U/L (<=46); Albumin, Serum 4.2 g/dL (3.4-4.8); Alkaline Phosphatase 57 U/L (40-129); Anion Gap 14 (5-15); BUN 21 mg/dL (4-19); BUN/Creat Ratio 15.3 RATIO (10-20); Calcium,Total 8.9 mg/dL (7.6-11.0); Carbon Dioxide 19.9 mmol/L (21.0-32.0); Chloride 105 mmol/L (98-108); Creatinine, Serum 1.36 mg/dL (0.70-1.20); EST Glomerular Filtration Rate 55 (>60); Globulin 2.9 g/dL (2.2-4.2); Glucose 203 mg/dL (70-99); Potassium 4.6 mmol/L (3.3-5.1); Sodium Level 139 mmol/L (133-145); Total Bilirubin 0.54 mg/dL (0.00-1.30)
== END | disposition home or self-care (01) ==
LOC: MFPLAB 09:02
PROVIDERS: PCP Family Medicine; Referring Provider Family Medicine; Visit Provider Family Medicine
DX: E11.22 Type 2 diabetes mellitus with diabetic chronic kidney disease (principal); N18.31 Chronic kidney disease, stage 3a
CPT/HCPCS: 36415; 80053; 83036

== ENCOUNTER → 2025-03-27 | Outpatient (CLI) | payer MEDICARE, OTHER, SELFPAY ==
[2025-03-27 12:33] LABS: Hematocrit 41.6 % (40-54); Hemoglobin 14.4 g/dL (13.0-16.5); Immature Granulocytes Count 0.010 X10^3/uL (0.0-0.0); Mean Corp Hgb Conc 34.6 g/dL (32-36); Mean Corpuscular Volume 95.9 fL (80-94); Mean Platelet Vol. 11.3 fl (6.2-12.0); NRBC Flagged by Analyzer 0 % (0-5); Platelet Count 216 K/mm3 (150-450); RBC Distribution Width CV 12.3 % (11.6-14.6); RBC Distribution Width SD 43.6 fl (35.1-43.9); Red Blood Count 4.34 M/mm3 (4.6-6.2); White Blood Count 7.0 K/mm3 (4.4-11.0)
[2025-03-27 13:26] LABS: AST(SGOT) 30 U/L (<=37); Alanine Aminotransfer ALT/SGPT 38 U/L (<=46); Albumin, Serum 4.3 g/dL (3.4-4.8); Alkaline Phosphatase 58 U/L (40-129); Anion Gap 15 (5-15); BUN 18 mg/dL (4-19); BUN/Creat Ratio 12.3 RATIO (10-20); Calcium,Total 9.4 mg/dL (7.6-11.0); Carbon Dioxide 20.8 mmol/L (21.0-32.0); Chloride 102 mmol/L (98-108); Cholesterol 129 mg/dL (<=200); Globulin 3.0 g/dL (2.2-4.2); Glucose 240 mg/dL (70-99); Low Density Lipoprotein Calc. 28 mg/dL; Potassium 4.7 mmol/L (3.3-5.1); Triglycerides 336 mg/dL; Very Low Density Lipoprotein 67 mg/dL (5-40); cholesterol:hdl ratio screen 3.81
== END | disposition home or self-care (01) ==
LOC: MFPLAB 09:56
PROVIDERS: PCP Family Medicine; Referring Provider Family Medicine; Visit Provider Family Medicine
DX: E11.22 Type 2 diabetes mellitus with diabetic chronic kidney disease (principal); N18.31 Chronic kidney disease, stage 3a
CPT/HCPCS: 36415; 80053; 80061; 83036; 85025

== ENCOUNTER → 2025-07-27 | Outpatient (CLI) | payer MEDICARE, OTHER, SELFPAY ==
[2025-07-27 13:24] LABS: PSA,Total - Annual Screen 0.14 ng/mL (0.02-4.00)
== END | disposition home or self-care (01) ==
LOC: LAB 11:28
PROVIDERS: PCP Family Medicine; Referring Provider Urology; Visit Provider Urology
DX: Z12.5 Encounter for screening for malignant neoplasm of prostate (principal)
CPT/HCPCS: 36415; 84153; G0103